=== PATIENT | female | born 1965 | race Caucasian/White ===

== ENCOUNTER 2016-11-23 17:46 | Observation (INO) | payer BC ==
[2016-11-23] VITALS (8 sets, daily range): BP systolic 111–152; BP diastolic 67–80; PULSE 72–108; RESP 16–18; TEMP 97.8–98.6; O2SAT 96–98
[~2016-11-23] VITALS: Ht 160 cm; Wt 110.0 kg
--- NOTE | 2016-11-23 18:24 | PD ---
HPI Chief Complaint: Chest Pain Time Seen by Provider: 18:04 Travel History International Travel<30 days: No Contact w/Intl Traveler<30days: No Traveled to known affect area: No History of Present Illness HPI 51-year-old female complains of chest pain and palpitation. Patient states that she was put on a diet pills Adipex recently. Adipex a brand name for phentermine. Patient states that she took it for 8 days and stopped taking it about 6 days ago. Patient started having palpitation about week ago. Patient states that the palpitation was intermittent and lasted for 3 days. Patient was doing well subsequently. Patient started having substernal chest pressure with palpitation this afternoon. Patient states that she has a lot of stress at home this afternoon. Patient states that she was feeling shaky, nausea and sweating. Patient states that the supple and chest pressure is without radiation. Patient denies any history of CAD. Patient has history of mitral valve prolapse. Patient denies history hypertension, diabetes, hyperlipidemia. Patient is a nonsmoker. Patient denies family history heart disease. Patient states that the chest pain started about an hour and a half prior coming to the emergency room. Patient states that the chest pain is much better now, almost resolved completely. PFSH Past Medical History Cardiovascular Problems: Yes (mvp) Tetanus Vaccination: > 5 Years Influenza Vaccination: No ?: Not Past Surgical History Section: Yes Hysterectomy: Yes Social History Alcohol Use: No Tobacco Use: No Substance Use: No Allergies-Medications Reported Meds & Prescriptions Reported Meds & Active Scripts Active No Active Prescriptions or Reported Medications Review of Systems General / Constitutional: No: Fever Eyes: No: Visual changes HENT: No: Headaches Cardiovascular: Positive: Chest Pain or Discomfort, Palpitations Respiratory: No: Shortness of Breath Gastrointestinal: No: Abdominal Pain Genitourinary: No: Dysuria Musculoskeletal: No: Pain Skin: No Rash Neurologic: No: Weakness Psychiatric: No: Depression Endocrine: No: Polydipsia Hematologic/Lymphatic: No: Easy Bruising Physical Exam Narrative GENERAL: Well-nourished, well-developed patient. SKIN: Focused skin assessment warm/dry. HEAD: Normocephalic. EYES: No scleral icterus. No injection or drainage. NECK: Supple, trachea midline. No JVD or lymphadenopathy. CARDIOVASCULAR: Regular rate and rhythm without murmurs, gallops, or rubs. RESPIRATORY: Breath sounds equal bilaterally. No accessory muscle use. GASTROINTESTINAL: Abdomen soft, non-tender, nondistended. MUSCULOSKELETAL: No cyanosis, or edema. BACK: Nontender without obvious deformity. No CVA tenderness. Neurologic exam normal. Data Data Last Documented VS Vital Signs Date Time Temp Pulse Resp B/P Pulse Ox O2 Delivery O2 Flow Rate FiO2 11/23/16 18:03 108 16 97 Room Air 11/23/16 17:57 98.6 152/80 Orders Complete Blood Count With Diff (11/23/16 18:13) Comprehensive Metabolic Panel (11/23/16 18:13) Creatine Kinase (Cpk) (11/23/16 18:13) Troponin I (11/23/16 18:13) Prothrombin Time / Inr (Pt) (11/23/16 18:13) Act Partial Throm Time (Ptt) (11/23/16 18:13) Thyroid Stimulating Hormone (11/23/16 18:13) Chest, Single Ap (11/23/16 18:13) Iv Access Insert/Monitor (11/23/16 18:13) Ecg Monitoring (11/23/16 18:13) Oximetry (11/23/16 18:13) MDM Medical Decision Making Medical Screen Exam Complete: Yes Emergency Medical Condition: Yes Differential Diagnosis Differential diagnosis including side effect to medications, anxiety panic attack, angina, MO, PE, pneumothorax. Narrative Course 51-year-old female with palpitation and chest pain. Patient was recently on phentermine for weight loss. Scripts No Active Prescriptions or Reported Meds Jose Owen MD Nov 23, 2016 18:24
[2016-11-23 18:45] LABS: AUTOMATED NEUTROPHIL # 6.8 TH/MM3 (1.8-7.7); BASOPHIL # 0.1 TH/MM3 (0-0.2); BASOPHIL % 0.6 % (0.0-2.0); EOSINOPHIL # 0.2 TH/MM3 (0-0.4); EOSINOPHIL % 1.6 % (0.0-4.0); HEMATOCRIT 40.5 % (35.0-46.0); HEMO FLAGS DIFF FINAL; LYMPH % 20.2 % (9.0-44.0); LYMPHOCYTE # 1.9 TH/MM3 (1.0-4.8); MEAN CELL VOLUME 85.2 FL (80.0-100.0); MEAN CORPUSCULAR HEMOGLOBIN 29.2 PG (27.0-34.0); MEAN CORPUSCULAR HGB CONC 34.3 % (32.0-36.0); MONO % 5.1 % (0.0-8.0); NEUT % 72.5 % (16.0-70.0); PLATELET COUNT 252 TH/MM3 (150-450); RED BLOOD COUNT 4.75 MIL/MM3 (4.00-5.30); WHITE BLOOD COUNT 9.4 TH/MM3 (4.0-11.0)
[2016-11-23 18:54] LABS: CHLORIDE 107 MEQ/L (98-107); POTASSIUM 4.1 MEQ/L (3.5-5.1); SODIUM (NA) 142 MEQ/L (136-145)
[2016-11-23 18:58] LABS: ANION GAP 9 MEQ/L (5-15); BICARBONATE 26.1 MEQ/L (21.0-32.0); BLOOD UREA NITROGEN 15 MG/DL (7-18)
[2016-11-23] MEDS ORDERED: ASPIRIN 325 MG TAB PO ONE (19:00)
[2016-11-23 19:01] LABS: ALT (GPT) 39 U/L (10-53); AST (GOT) 24 U/L (15-37); GLOMERULAR FILTRATION RATE 65 ML/MIN (>89)
--- NOTE | 2016-11-23 19:01 | RADHPO ---
EXAM DATE/TIME: 11/23/2016 18:42 [facility] COMPARISON: No previous studies available for comparison. INDICATIONS : Patient has had chest pain since this afternoon. MEDICAL HISTORY : None. SURGICAL HISTORY : None. ENCOUNTER: Initial ACUITY: 1 day PAIN SCORE: 2/10 LOCATION: Center of chest. FINDINGS: A single view of the chest demonstrates the lungs to be symmetrically aerated without evidence of mas s, infiltrate or effusion. The cardiomediastinal contours are unremarkable. Osseous structures are intact. CONCLUSION: No evidence of acute cardiopulmonary disease. Javier Saleh MD on November 23, 2016 at 18:59 Board Certified Radiologist. This report was verified electronically.
[2016-11-23 19:03] LABS: TOTAL BILIRUBIN ADULT 0.2 MG/DL (0.2-1.0)
[2016-11-23 19:04] LABS: ALKALINE PHOSPHATASE 72 U/L (45-117); CREATINE KINASE 134 U/L (26-192)
--- NOTE | 2016-11-23 19:32 | PD ---
Data Data Last Documented VS Vital Signs Date Time Temp Pulse Resp B/P Pulse Ox O2 Delivery O2 Flow Rate FiO2 11/23/16 19:38 74 16 111/70 97 Room Air 11/23/16 17:57 98.6 Orders Complete Blood Count With Diff (11/23/16 18:13) Comprehensive Metabolic Panel (11/23/16 18:13) Creatine Kinase (Cpk) (11/23/16 18:13) Troponin I (11/23/16 18:13) Prothrombin Time / Inr (Pt) (11/23/16 18:13) Act Partial Throm Time (Ptt) (11/23/16 18:13) Thyroid Stimulating Hormone (11/23/16 18:13) Chest, Single Ap (11/23/16 18:13) Iv Access Insert/Monitor (11/23/16 18:13) Ecg Monitoring (11/23/16 18:13) Oximetry (11/23/16 18:13) Aspirin (Aspirin) (11/23/16 19:00) Labs Laboratory Tests Test 11/23/16 11/23/16 18:40 19:20 White Blood Count 9.4 TH/MM3 Red Blood Count 4.75 MIL/MM3 Hemoglobin 13.9 GM/DL Hematocrit 40.5 % Mean Corpuscular Volume 85.2 FL Mean Corpuscular Hemoglobin 29.2 PG Mean Corpuscular Hemoglobin 34.3 % Concent Red Cell Distribution Width 13.0 % Platelet Count 252 TH/MM3 Mean Platelet Volume 8.1 FL Neutrophils (%) (Auto) 72.5 % Lymphocytes (%) (Auto) 20.2 % Monocytes (%) (Auto) 5.1 % Eosinophils (%) (Auto) 1.6 % Basophils (%) (Auto) 0.6 % Neutrophils # (Auto) 6.8 TH/MM3 Lymphocytes # (Auto) 1.9 TH/MM3 Monocytes # (Auto) 0.5 TH/MM3 Eosinophils # (Auto) 0.2 TH/MM3 Basophils # (Auto) 0.1 TH/MM3 CBC Comment DIFF FINAL Differential Comment Sodium Level 142 MEQ/L Potassium Level 4.1 MEQ/L Chloride Level 107 MEQ/L Carbon Dioxide Level 26.1 MEQ/L Anion Gap 9 MEQ/L Blood Urea Nitrogen 15 MG/DL Creatinine 0.91 MG/DL Estimat Glomerular Filtration 65 ML/MIN Rate Random Glucose 123 MG/DL Calcium Level 9.0 MG/DL Total Bilirubin 0.2 MG/DL Aspartate Amino Transf 24 U/L (AST/SGOT) Alanine Aminotransferase 39 U/L (ALT/SGPT) Alkaline Phosphatase 72 U/L Total Creatine Kinase 134 U/L Troponin I LESS THAN 0.02 NG/ML Total Protein 7.4 GM/DL Albumin 3.6 GM/DL Thyroid Stimulating Hormone 4.470 uIU/ML 3rd Gen Prothrombin Time 10.4 SEC Prothromb Time International 0.9 RATIO Ratio Activated Partial 25.7 SEC Thromboplast Time MDM Supervised Visit with STEPHANIA: Yes Narrative Course To 51 year-old woman presents for chest pain and palpitations. She was recently started on phentermine and had palpitations and so stopped about 6 days ago. Today had a period of emotional upset she developed chest pain and palpitations. No history of CAD. No hypertension diabetes or high cholesterol. No smoking. Patient was initially evaluated by Dr. Owen, signed out to to follow-up on the results of diagnostic testing and admission to the chest pain Center. My review of EKG shows normal sinus rhythm at a rate of 96, leftward axis, normal intervals, no acute ischemia. Labs: CBC is unremarkable. CMP is unremarkable TSH is normal Troponin is negative Chest x-ray: No evidence of acute cardiopulmonary disease. Diagnosis Primary Impression: Chest pain Admitting Information Admitting Physician Requests: Observation Scripts No Active Prescriptions or Reported Meds Toro Gtz MD Nov 23, 2016 19:32
[2016-11-23 19:43] LABS: APTT (PATIENT) 25.7 SEC (24.3-30.1); INTERNATIONAL NORMALIZED RATIO 0.9 RATIO; PROTHROMBIN TIME - PATIENT 10.4 SEC (9.8-11.6)
[2016-11-23] MEDS ORDERED: SODIUM CHLORIDE 0.9% FLUSH 10 ML FLUSH IV FLUSH PRN (20:00)
[2016-11-23] MEDS: SODIUM CHLORIDE 0.9% FLUSH 10 ML FLUSH SCH (21:09)
[2016-11-23 22:02] LABS: CREATINE KINASE 110 U/L (26-192)
[2016-11-23 22:15] LABS: CKMB 1.6 NG/ML (0.5-3.6)
[2016-11-24 01:43] LABS: CREATINE KINASE 102 U/L (26-192)
[2016-11-24 01:56] LABS: CKMB 1.6 NG/ML (0.5-3.6)
[2016-11-24 04:00] VITALS: BP 128/72; PULSE 76; RESP 16; TEMP 98; O2SAT 98
[2016-11-24 08:00] VITALS: BP 98/61; PULSE 63; RESP 18; TEMP 97.6; O2SAT 97
--- NOTE | 2016-11-24 08:07 | HHI.PR ---
Objective Vitals Vital Signs Date Time Temp Pulse Resp B/P Pulse Ox O2 Delivery O2 Flow Rate FiO2 11/24/16 04:00 98.0 76 16 128/72 98 11/23/16 23:00 97.8 72 18 123/67 96 11/23/16 22:41 74 16 97 Room Air 11/23/16 22:40 74 16 97 11/23/16 21:30 72 16 116/72 97 Room Air 11/23/16 20:58 97 21 11/23/16 19:38 74 16 111/70 97 Room Air 11/23/16 19:30 77 97 Room Air 11/23/16 18:51 83 16 127/79 97 Room Air 11/23/16 18:03 108 16 97 Room Air 11/23/16 18:00 16 98 Room Air 11/23/16 17:57 98.6 108 16 152/80 97 I/O 11/23/16 11/23/16 11/23/16 11/24/16 11/24/16 11/24/16 07:00 15:00 23:00 07:00 15:00 23:00 Intake Total 0 ml Balance 0 ml Intake Oral 0 ml # Voids 2 # Bowel Movements 0 Result Diagram: 11/23/160 11/23/161839 Urinary Catheter: No Vascular Central Line Catheter: Jackie Daniel Nov 24, 2016 08:07 11/23/16 184 Objective Remarks GENERAL: Pleasant well-nourished, well-developed patient in no apparent distress. SKIN: Warm and dry. HEAD: Atraumatic. Normocephalic. CHEST: Reproducible tenderness over the left anterior chest wall. CARDIOVASCULAR: Regular rate and rhythm. No murmurs. RESPIRATORY: No accessory muscle use. Clear to auscultation. Breath sounds equal bilaterally. GASTROINTESTINAL: Abdomen soft, non-tender, nondistended. MUSCULOSKELETAL: No tenderness to palpation over the upper arms or calves bilaterally. No lower extremity edema bilaterally. NEUROLOGICAL: Awake and alert. Five out of 5 clinical services assistant strength bilaterally and 5/5 strength in bilateral quadriceps. Normal speech. PSYCHIATRIC: Appropriate mood and affect; insight and judgment normal. Urinary Catheter: No Vascular Central Line Catheter: Jackie Daniel Nov 24, 2016 08:07
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
[2016-11-24] MEDS: SODIUM CHLORIDE 0.9% FLUSH 10 ML FLUSH SCH (09:00)
[2016-11-24 09:10] VITALS: O2SAT 96
[2016-11-24] MEDS ORDERED: REGADENOSON INJ 0.4 MG/5 ML SYR IV ONE (10:01)
--- NOTE | 2016-11-24 11:43 | RADHPO ---
EXAM DATE/TIME: 11/24/2016 09:54 [facility] COMPARISON: No previous studies available for comparison. INDICATIONS : Substernal chest pain with nausea and diaphoresis. Mitral valve prolapse. Angina. DOSE: 35 mCi Tc99m Myoview at stress. 11 mCi Tc99m Myoview at rest. 0.4 mg Lexiscan STRESS SYMPTOMS: Dyspnea, diaphoresis, heart racing, facial flush and leg pressure. EJECTION FRACTION: 62% MEDICAL HISTORY : None SURGICAL HISTORY : Hysterectomy. section. ENCOUNTER: Initial ACUITY: 1 day PAIN SCALE: 5/10 LOCATION: Substernal chest TECHNIQUE: The patient underwent pharmacologic stress with infusion of prescribed dose. Continuous ECG tracing was monitored during stress. Gated SPECT imaging was performed after stress and conventional SPECT i maging was performed at rest. The examination was performed on a SPECT/CT scanner, both attenuation and non-corrected datasets were reviewed. FINDINGS: DISTRIBUTION: The maximum perfused segment at stress is in the anterolateral wall. PERFUSION STUDY: The pattern of perfusion at stress is within normal limits. GATED STUDY: There is intact wall motion and thickening without hypokinetic or dyskinetic segments. CONCLUSION: 1. No reversible perfusion defect to indicate stress-induced myocardial ischemia identified. RISK CATEGORY: Low (<1% Annual Mortality Rate) Jonathon Neville MD on November 24, 2016 at 11:40 Board Certified Radiologist. This report was verified electronically.
[2016-11-24 12:00] VITALS: BP 104/67; PULSE 68; RESP 19; TEMP 97.2; O2SAT 96
[2016-11-24 13:41] LABS: FREE T3 2.83 PG/ML (2.18-3.98); FREE T4 0.87 NG/DL (0.76-1.46)
--- NOTE | 2016-11-24 13:59 | HHI.DCPOC ---
Discharge Care Plan Diagnosis: (1) Chest pain (2) Elevated TSH (3) Anxiety Your Health Problems Are: Chest Pain Goals to Promote Your Health * To prevent worsening of your condition and complications * To maintain your health at the optimal level Directions to Meet Your Goals Take your medications as prescribed Follow your dietary instruction Follow activity as directed Keep your appointments as scheduled Take your immunizations and boosters as scheduled If your symptoms worsen call your PCP, if no PCP go to Urgent Care Center or Emergency Room Smoking is Dangerous to Your Health. Avoid second hand smoke Call the 24-hour hour crisis hotline for domestic abuse at Jackie Estevez Nov 24, 2016 13:58
--- NOTE | 2016-11-24 14:23 | EKG ---
Date Performed: 11/23/2016 Time Performed: 21:36:47 PTAGE: 51 years EKG: Sinus rhythm NORMAL ECG NO PREVIOUS TRACING DOCTOR: Shaquille Servin Interpretating Date/Time 11/24/2016 14:21:45
--- NOTE | 2016-11-24 14:23 | EKG ---
Date Performed: 11/24/2016 Time Performed: 00:27:24 PTAGE: 51 years EKG: Sinus rhythm LOW QRS VOLTAGE IN PRECORDIAL LEADS INCOMPLETE RIGHT BUNDLE BRANCH BLOCK BORDERLINE ECG PREVIOUS TRACING : 11/23/2016 21.36 Since previous tracing, no significant change noted DOCTOR: Shaquille Servin Interpretating Date/Time 11/24/2016 14:21:13
--- NOTE | 2016-11-24 14:25 | EKG ---
Date Performed: 11/23/2016 Time Performed: 17:56:03 PTAGE: 51 years EKG: Sinus rhythm WITH SINUS ARRHYTHMIA BORDERLINE LEFT AXIS DEVIATION BORDERLINE ECG INTERPRETATION BASED ON A DEFAUL T AGE OF 39 YEARS NO PREVIOUS TRACING DOCTOR: Shaquille Servin Interpretating Date/Time 11/24/2016 14:22:53
--- NOTE | 2016-11-24 14:31 | TR ---
Date Performed: 11/24/2016 Time Performed: 10:14:02 DOCTOR: Shaquille Servin DRUG LIST: CLINICAL HISTORY: CHEST PAIN REASON FOR TEST: Chest pain REASON FOR ENDING: OBSERVATION: CONCLUSION: Lexiscan stress test was performed under standard four minute protocol. Radionuclid e was injected one minute prior to ending the test. No electrocardiographic abormalities were present to suggest ischemia. Nuclear imaging and interpretation are pending. COMMENTS:
== END 2016-11-24 17:31 | disposition home or self-care (01) ==
LOC: PHED 17:46 → PHEDA 19:46 → PH3A 22:28
PROVIDERS: ADMIT Family Medicine; ATTEND Family Medicine
DX: R07.89 Other chest pain (principal); R94.6 Abnormal results of thyroid function studies; F41.9 Anxiety disorder, unspecified; I34.1 Nonrheumatic mitral (valve) prolapse; Z88.1 Allergy status to other antibiotic agents
CPT/HCPCS: 71010; 78452; 80053; 82550; 82552; 84439; 84443; 84481; 84484; 85025; 85610; 85730; 93005; 93017; 99285; A9502; G0378; J2785